=== PATIENT | female | born 1975 | race Caucasian/White ===

== ENCOUNTER 2018-12-29 10:52 | Outpatient (CLI) | payer OTHER | END 2018-12-29 10:53 | disposition home or self-care (01) | LOC: C.MAMMO 10:52 | DX: R92.2 Inconclusive mammogram (principal) ==

== ENCOUNTER 2019-01-20 09:50 | Outpatient (CLI) | payer OTHER | END 2019-01-20 09:51 | disposition home or self-care (01) | LOC: C.SPRAD 09:50 ==